=== PATIENT | female | born 1970 | race Caucasian/White ===

== ENCOUNTER → 2022-10-05 | Day surgery (SDC) | payer OTHER ==
[2022-10-03 14:32] VITALS: BP 178/95
[~2022-10-05] VITALS: Ht 160 cm; Wt 105.7 kg
[2022-10-05] VITALS (7 sets, daily range): BP systolic 128–152; BP diastolic 56–80
[~2022-10-05] MED LIST: CELECOXIB200 MG PO; HYDROXYZINE HCL25 MG PO; LEVOTHYROXINE25 MCG PO; LISINOPRIL10 M1 PO; MYRBETRIQ50 M1 PO; NEURONTIN600 MG PO; REFRESH DIGITA1 EACH OP; TIZANIDINE HCL4 M1 PO; TRAMADOL HCL50 MG PO; VIBRAMYCIN HYC100 MG PO; VITAMIN D325 MCG PO; WELLBUTRIN SR150 MG PO; XARELTO10 MG PO; ZUPLENZ4 M1 SL
== END ==
LOC: SDC 10-03 14:00
PROVIDERS: ATTEND Podiatrist
DX: M77.31 Calcaneal spur, right foot (principal); S86.011A Strain of right Achilles tendon, initial encounter; M76.61 Achilles tendinitis, right leg; F41.9 Anxiety disorder, unspecified; I10 Essential (primary) hypertension; E03.9 Hypothyroidism, unspecified; K21.9 Gastro-esophageal reflux disease without esophagitis; M06.9 Rheumatoid arthritis, unspecified; G47.30 Sleep apnea, unspecified; Z98.890 Other specified postprocedural states; X58.XXXA Exposure to other specified factors, initial encounter; Y93.89 Activity, other specified; Y92.89 Other specified places as the place of occurrence of the external cause; Y99.8 Other external cause status

== ENCOUNTER → 2024-05-15 | Day surgery (SDC) | payer OTHER ==
[2024-05-15] VITALS (8 sets, daily range): BP systolic 157–166; BP diastolic 74–94
[~2024-05-15] VITALS: Ht 160 cm; Wt 109.3 kg
[~2024-05-15] MED LIST changes: +ACETAMINOPHEN 100 ML IV ONE; +BUPivacaine 0.5% 30 ML IV ONE; +CYMBALTA60 MG PO; +Dexamethasone Sodium Phospha 4 MG/ML VIAL IV ONE; +HYDROmorphONE Hydrochloride 0.5 MG/0.5 ML SYRINGE IV ONE; +HYDROmorphONE Hydrochloride 0.5 MG/0.5 ML SYRINGE ONE; +Ketamine Hydrochloride 50 MG/5 ML SYRINGE IV ONE; +Ketorolac Tromethamine 30 MG/ML VIAL IV ONE; +Lactated Ringer's Solution 1,000 ML IV ONE; +Lidocaine Hydrochloride 5 ML VIAL IV ONE; +Midazolam Hydrochloride 2 MG/2 ML VIAL IV ONE; +Ondansetron Hydrochloride 4 MG/2 ML VIAL IV ONE; +PREGABALIN75 MG PO; +PROPOFOL 200 MG/20 ML VIAL IV ONE; +ROCURONIUM BROMIDE 50 MG/5 ML SYRINGE IV ONE; +SUGAMMADEX SODIUM 200 MG/2 ML VIAL IV ONE; +Scopolamine 1 PATCH PATCH T ONE; +Succinylcholine Chloride 200 MG/10 ML SYRINGE IV ONE; +VIBRA-TAB100 MG PO; +Vancomycin Hydrochloride 1,000 MG VIAL ONE; +ceFAZolin sodium 2GM/20ML IV ONE; +ceFAZolin sodium/sodium chlor 20 ML IV ONE; +fentaNYL CITRATE 100 MCG/2 ML VIAL IV ONE
== END | disposition home or self-care (01) ==
LOC: SDC 05-13 08:45
PROVIDERS: ATTEND Podiatrist
DX: S86.012A Strain of left Achilles tendon, initial encounter (principal); M76.62 Achilles tendinitis, left leg; M89.9 Disorder of bone, unspecified; M67.872 Other specified disorders of synovium, left ankle and foot; I10 Essential (primary) hypertension; E03.9 Hypothyroidism, unspecified; G43.909 Migraine, unspecified, not intractable, without status migrainosus; K21.9 Gastro-esophageal reflux disease without esophagitis; F41.9 Anxiety disorder, unspecified; F32.A Depression, unspecified; G47.33 Obstructive sleep apnea (adult) (pediatric); M06.9 Rheumatoid arthritis, unspecified; Z90.710 Acquired absence of both cervix and uterus; Z96.652 Presence of left artificial knee joint; Z90.721 Acquired absence of ovaries, unilateral; Z98.890 Other specified postprocedural states; Z91.040 Latex allergy status; Z91.018 Allergy to other foods; Z79.890 Hormone replacement therapy; Z79.899 Other long term (current) drug therapy; Z80.3 Family history of malignant neoplasm of breast; Z82.49 Family history of ischemic heart disease and other diseases of the circulatory system; X58.XXXA Exposure to other specified factors, initial encounter; Y93.89 Activity, other specified; Y92.89 Other specified places as the place of occurrence of the external cause; Y99.8 Other external cause status

== ENCOUNTER → 2024-05-29 | Outpatient (CLI) | payer OTHER ==
[~2024-05-29] MED LIST changes: -ACETAMINOPHEN 100 ML IV ONE; -BUPivacaine 0.5% 30 ML IV ONE; -Dexamethasone Sodium Phospha 4 MG/ML VIAL IV ONE; -HYDROmorphONE Hydrochloride 0.5 MG/0.5 ML SYRINGE IV ONE; -HYDROmorphONE Hydrochloride 0.5 MG/0.5 ML SYRINGE ONE; -Ketamine Hydrochloride 50 MG/5 ML SYRINGE IV ONE; -Ketorolac Tromethamine 30 MG/ML VIAL IV ONE; -Lactated Ringer's Solution 1,000 ML IV ONE; -Lidocaine Hydrochloride 5 ML VIAL IV ONE; -Midazolam Hydrochloride 2 MG/2 ML VIAL IV ONE; -Ondansetron Hydrochloride 4 MG/2 ML VIAL IV ONE; -PROPOFOL 200 MG/20 ML VIAL IV ONE; -ROCURONIUM BROMIDE 50 MG/5 ML SYRINGE IV ONE; -SUGAMMADEX SODIUM 200 MG/2 ML VIAL IV ONE; -Scopolamine 1 PATCH PATCH T ONE; -Succinylcholine Chloride 200 MG/10 ML SYRINGE IV ONE; -Vancomycin Hydrochloride 1,000 MG VIAL ONE; -ceFAZolin sodium 2GM/20ML IV ONE; -ceFAZolin sodium/sodium chlor 20 ML IV ONE; -fentaNYL CITRATE 100 MCG/2 ML VIAL IV ONE
== END | disposition home or self-care (01) ==
LOC: US 11:44
PROVIDERS: ATTEND Podiatrist
DX: M79.89 Other specified soft tissue disorders (principal); M79.605 Pain in left leg